=== PATIENT | male | born 1955 | race Caucasian/White ===

== ENCOUNTER 2018-01-15 12:28 | Emergency (ER) | payer MEDICAID, MEDICARE ==
[~2018-01-15] VITALS: Ht 182.9 cm; Wt 80.0 kg
[2018-01-15] MEDS ORDERED: MUPIROCIN OINT 2%, 22GM TP ONE (13:05)
[2018-01-15] MEDS ORDERED: CEFTRIAXONE PMX 1GM/50ML 50 ML ONE (13:21)
[2018-01-15] MEDS ORDERED: SODIUM CHLORIDE FLUSH 10ML SYR IVF ONE (13:30)
[2018-01-15] MEDS ORDERED: CEFTRIAXONE 1,000 MG in SODIUM CHLORIDE 0.9% 50 ML IVPB ONE (13:30)
[2018-01-15 13:32] LABS: BASOPHILS # (AUTO) 0.07 x10^3/uL (0-0.1); BASOPHILS % (AUTO) 1 % (0-1); EOSINOPHILS # (AUTO) 0.19 x10^3/uL (0-0.4); EOSINOPHILS % (AUTO) 2 % (1-7); LYMPHOCYTES # (AUTO) 1.36 x10^3/uL (1-3.4); LYMPHOCYTES % (AUTO) 14 % (22-44); MD NO; MEAN CORPUSCULAR HEMOGLOBIN 29.8 pg (27.5-34.5); MEAN CORPUSCULAR HGB CONC 34.2 g/dL (33.2-36.2); MEAN PLATELET VOLUME 7.5 fL (7.4-10.4); MONOCYTES # (AUTO) 0.48 x10^3/uL (0.2-0.8); MONOCYTES % (AUTO) 5 % (2-9); NEUTROPHILS % (AUTO) 79 % (42-75); PLATELET COUNT 342 x10^3/uL (130-400); RED BLOOD COUNT 4.27 x10^6/uL (4.38-5.82); RED CELL DISTRIBUTION WIDTH 13.5 % (9.4-14.8)
[2018-01-15 13:41] LABS: ALANINE AMINOTRANSFERASE 22 U/L (12-78); ALBUMIN 3.2 g/dL (3.4-5.0); ANION GAP 10 mmol/L (5-15); CALCIUM 9.5 mg/dL (8.5-10.1); CHLORIDE 102 mmol/L (98-107); CREATININE 1.23 mg/dL (0.7-1.3)
[2018-01-15 13:43] LABS: ALKALINE PHOSPHATASE 108 U/L (45-117); BILIRUBIN,TOTAL 0.5 mg/dL (0.2-1.0); TOTAL PROTEIN 7.4 g/dL (6.4-8.2)
[2018-01-15] MEDS ORDERED: POTASSIUM CHLORIDE 20 MEQ TAB.ER.PRT PO ONE (14:00)
[2018-01-15] MEDS ORDERED: POTASSIUM CHLORIDE 20 MEQ TAB.ER.PRT ONE (14:00)
[2018-01-15 14:48] VITALS: BP 110/71
[2018-01-15] MEDS ORDERED: OXYC20TA42 PO (20:25)
[2018-01-15] MEDS ORDERED: antibiotic PO (20:25)
[2018-01-15] MEDS ORDERED: [UNRECOGNIZED DRUG - REMARK] PO (20:25)
[2018-01-15] MEDS ORDERED: SENN1TAB67 PO (20:25)
[2018-01-15] MEDS ORDERED: [UNRECOGNIZED DRUG - REMARK] PO (20:25)
[2018-01-15] MEDS ORDERED: [UNRECOGNIZED DRUG - REMARK] PO (20:25)
== END 2018-01-15 14:51 | disposition left against medical advice (07) ==
LOC: ED 13:14 → UNDOADMIN 13:53 → EDIP 13:53 → UNDODISIN 14:51 → ED 14:51 → UNDODISIN 14:57
DX: K94.02 Colostomy infection (principal); L53.8 Other specified erythematous conditions
CPT/HCPCS: 36415; 80053; 85025; 87040; 96365; 99284; J0696

== ENCOUNTER 2018-01-15 19:57 | Inpatient (IN) | payer MEDICARE ==
[~2018-01-15] VITALS: Ht 172.7 cm; Wt 91.1 kg
[2018-01-15] MEDS ORDERED: OXYC20TA42 PO (20:25)
[2018-01-15] MEDS ORDERED: SENN1TAB67 PO (20:25)
[2018-01-15] MEDS ORDERED: [UNRECOGNIZED DRUG - REMARK] PO (20:25)
[2018-01-15] MEDS ORDERED: antibiotic PO (20:25)
[2018-01-15] MEDS ORDERED: [UNRECOGNIZED DRUG - REMARK] PO (20:25)
[2018-01-15] MEDS ORDERED: [UNRECOGNIZED DRUG - REMARK] PO (20:25)
[2018-01-15] MEDS ORDERED: ACETAMINOPHEN 500 MG TABLET PO ONE (21:00)
[2018-01-15] MEDS ORDERED: ACETAMINOPHEN 500 MG TABLET ONE (21:49)
[2018-01-15] MEDS ORDERED: SODIUM CHLORIDE 0.9% 1,000ML IVBOLUS ONE (22:00)
[2018-01-15 22:17] LABS: CLOSTRIDIUM DIFFICILE ANTIGEN NEGATIVE; CLOSTRIDIUM DIFFICILE TOXIN NEGATIVE (Negative)
[2018-01-15] MEDS ORDERED: VANCOMYCIN PMX 1GM/200ML 200 ML IV ONE (22:30)
[2018-01-15] MEDS ORDERED: VANCOMYCIN PER PHARMACY MC PRN (22:30)
[2018-01-15] MEDS ORDERED: PHARMACOKINETIC CONSULTATION MC ONE (23:00)
[2018-01-15] MEDS ORDERED: PHARMACOKINETIC MONITORING MC PRN (23:00)
[2018-01-15 23:22] VITALS: BP 99/62
[2018-01-15] MEDS: PIPERACILLIN/TAZO/PMX 3.375GM 50 ML IV SCH (23:32)
[2018-01-16] MEDS: VANCOMYCIN 1,600 MG in SODIUM CHLORIDE 0.9% 250 ML IV SCH (00:23)
[2018-01-16] MEDS ORDERED: hydrALAzine 20 MG/ML, 1ML IVPush PRN (01:00)
[2018-01-16] MEDS ORDERED: DOCUSATE 100 MG CAPSULE PO PRN (01:00)
[2018-01-16] MEDS ORDERED: ONDANSETRON ODT 4 MG PO PRN (01:00)
[2018-01-16] MEDS ORDERED: ONDANSETRON 2MG/ML, 2ML IVPush PRN (01:00)
[2018-01-16] MEDS ORDERED: ACETAMINOPHEN 325 MG TABLET PO PRN (01:00)
[2018-01-16] MEDS ORDERED: POLYETHYLENE GLYCOL 17 GM PACKET PO PRN (01:00)
[2018-01-16] MEDS ORDERED: BISACODYL 10 MG SUPP PR PRN (01:00)
[2018-01-16] MEDS ORDERED: PROMETHAZINE 25 MG/ML, 1ML IM PRN (01:00)
[2018-01-16] MEDS ORDERED: morphine SULFATE 10 MG/ML, 1ML IVPush PRN (01:00)
[2018-01-16 02:46] LABS: HEMOGLOBIN A1C 5.4 % (4.2-6.3)
[2018-01-16 02:51] LABS: C-REACTIVE PROTEIN, QUANT 3.4 mg/dL (0.02-0.49); THYROID STIMULATING HORMONE 3.52 mIU/L (0.358-3.740)
[2018-01-16 03:35] VITALS: BP 110/69
[2018-01-16] MEDS: SODIUM CHLORIDE 0.9% 1,000 ML IV SCH ×2 (03:57→16:55)
[2018-01-16] MEDS: ENOXAPARIN 40 MG/0.4 ML SQ SCH (03:57)
[2018-01-16 04:28] LABS: MICROSCOPIC INDICATED
[2018-01-16 04:32] LABS: CULTURE INDICATED? NO
[2018-01-16] MEDS: PIPERACILLIN/TAZO/PMX 3.375GM 50 ML IV SCH ×3 (06:31→23:29)
[2018-01-16] MEDS: SUCRALFATE 1 GM/10 ML UDC PO SCH ×5 (06:31→21:07)
[2018-01-16 07:45] VITALS: BP 100/64
[2018-01-16] MEDS: MAGNESIUM CHLORIDE 64 MG TABLET.DR PO SCH ×2 (11:53→21:06)
[2018-01-16] MEDS ORDERED: MAGNESIUM SULFATE PMX 2GM/50ML 50 ML IV ONE (12:00)
[2018-01-16 12:55] VITALS: BP 100/66
[2018-01-16 21:13] VITALS: BP 104/69
[2018-01-16] MEDS: OXYcodone IR 5MG TABLET PO PRN (23:53)
[2018-01-17] MEDS: VANCOMYCIN 1,600 MG in SODIUM CHLORIDE 0.9% 250 ML IV SCH (01:39)
[2018-01-17] MEDS: ENOXAPARIN 40 MG/0.4 ML SQ SCH (01:39)
[2018-01-17 03:59] VITALS: BP 105/75
[2018-01-17] MEDS: PIPERACILLIN/TAZO/PMX 3.375GM 50 ML IV SCH ×4 (05:25→23:28)
[2018-01-17 05:31] LABS: BASOPHILS # (AUTO) 0.05 x10^3/uL (0-0.1); BASOPHILS % (AUTO) 1 % (0-1); EOSINOPHILS # (AUTO) 0.29 x10^3/uL (0-0.4); EOSINOPHILS % (AUTO) 3 % (1-7); LYMPHOCYTES # (AUTO) 1.71 x10^3/uL (1-3.4); LYMPHOCYTES % (AUTO) 19 % (22-44); MD NO; MEAN CORPUSCULAR HEMOGLOBIN 29.8 pg (27.5-34.5); MEAN CORPUSCULAR HGB CONC 33.9 g/dL (33.2-36.2); MONOCYTES # (AUTO) 0.45 x10^3/uL (0.2-0.8); MONOCYTES % (AUTO) 5 % (2-9); NEUTROPHILS # (AUTO) 6.41 x10^3/uL (1.8-6.8); NEUTROPHILS % (AUTO) 72 % (42-75); PLATELET COUNT 369 x10^3/uL (130-400); RED BLOOD COUNT 4.41 x10^6/uL (4.38-5.82); RED CELL DISTRIBUTION WIDTH 13.8 % (9.4-14.8)
[2018-01-17 05:43] LABS: CHLORIDE 99 mmol/L (98-107)
[2018-01-17 05:47] LABS: ALANINE AMINOTRANSFERASE 17 U/L (12-78); ALKALINE PHOSPHATASE 98 U/L (45-117); ANION GAP 8 mmol/L (5-15); BILIRUBIN,TOTAL 0.4 mg/dL (0.2-1.0); CHOL/HDL RATIO 2.9; CHOLESTEROL, TOTAL 100 mg/dL (140-239); CREATININE 1.18 mg/dL (0.7-1.3); HDL CHOL % 35 % (26-37); HDL CHOLESTEROL (DIRECT) 35 mg/dL (40-60); LDL CHOLESTEROL,CALCULATED 32 mg/dL (54-169); LDL/HDL RATIO 0.9 (0.5-3.0); TOTAL PROTEIN 7.3 g/dL (6.4-8.2); TRIGLYCERIDES 167 mg/dL (50-200); VLDL CHOLESTEROL 33 mg/dL (0-25)
[2018-01-17 08:05] VITALS: BP 103/69
[2018-01-17] MEDS: MAGNESIUM CHLORIDE 64 MG TABLET.DR PO SCH ×2 (09:39→20:28)
[2018-01-17] MEDS: SUCRALFATE 1 GM/10 ML UDC PO SCH ×4 (09:40→20:28)
[2018-01-17 13:41] VITALS: BP 96/65
[2018-01-17] MEDS: OMEPRAZOLE 20 MG CAPSULE.DR PO SCH (17:00)
[2018-01-17] MEDS ORDERED: GOLYTELY 4,000ML ORAL.SOL PO ONE (18:00)
[2018-01-17 19:15] VITALS: BP 111/67
[2018-01-17] MEDS ORDERED: QUETIAPINE 25MG TABLET ONE (20:24)
[2018-01-17] MEDS: QUETIAPINE 100MG TABLET PO SCH (20:28)
[2018-01-17] MEDS: OXYcodone IR 5MG TABLET PO PRN (20:34)
[2018-01-18] MEDS: ENOXAPARIN 40 MG/0.4 ML SQ SCH (01:03)
[2018-01-18] MEDS: VANCOMYCIN 1,600 MG in SODIUM CHLORIDE 0.9% 250 ML IV SCH (01:03)
[2018-01-18 01:17] VITALS: BP 119/72
[2018-01-18] MEDS: PIPERACILLIN/TAZO/PMX 3.375GM 50 ML IV SCH ×4 (05:33→23:09)
[2018-01-18 07:20] VITALS: BP 107/56
[2018-01-18] MEDS: SUCRALFATE 1 GM/10 ML UDC PO SCH ×4 (07:22→20:16)
[2018-01-18] MEDS: OMEPRAZOLE 20 MG CAPSULE.DR PO SCH ×2 (07:27→16:28)
[2018-01-18] MEDS: MAGNESIUM CHLORIDE 64 MG TABLET.DR PO SCH (07:27)
[2018-01-18] MEDS: MULTIVITAMIN 1 TABLET PO SCH (07:27)
[2018-01-18] MEDS: OXYcodone IR 5MG TABLET PO PRN ×2 (07:29→16:40)
[2018-01-18 13:25] VITALS: BP 110/68
[2018-01-18] MEDS: QUETIAPINE 100MG TABLET PO SCH (20:17)
[2018-01-18 20:28] VITALS: BP 109/70
[2018-01-19] MEDS: VANCOMYCIN 1,600 MG in SODIUM CHLORIDE 0.9% 250 ML IV SCH ×2 (00:42→04:30)
[2018-01-19] MEDS: ENOXAPARIN 40 MG/0.4 ML SQ SCH (00:42)
[2018-01-19 02:28] VITALS: BP 106/67
[2018-01-19 05:08] LABS: CREATININE 0.95 mg/dL (0.7-1.3)
[2018-01-19] MEDS: PIPERACILLIN/TAZO/PMX 3.375GM 50 ML IV SCH (06:35)
[2018-01-19 07:00] VITALS: BP 101/61
[2018-01-19] MEDS: SUCRALFATE 1 GM/10 ML UDC PO SCH ×4 (07:09→21:40)
[2018-01-19] MEDS: MULTIVITAMIN 1 TABLET PO SCH (08:00)
[2018-01-19] MEDS: OXYcodone IR 5MG TABLET PO PRN ×2 (08:00→17:06)
[2018-01-19] MEDS: OMEPRAZOLE 20 MG CAPSULE.DR PO SCH ×2 (08:00→17:05)
[2018-01-19] MEDS: CEFTRIAXONE 1,000 MG in SODIUM CHLORIDE 0.9% 50 ML IV SCH (11:51)
[2018-01-19 13:20] VITALS: BP 110/71
[2018-01-19 20:12] VITALS: BP 118/68
[2018-01-19] MEDS ORDERED: QUETIAPINE 100MG TABLET PO SCH (21:00)
[2018-01-20] MEDS: ENOXAPARIN 40 MG/0.4 ML SQ SCH (01:08)
[2018-01-20 02:15] VITALS: BP 108/63
[2018-01-20] MEDS: SUCRALFATE 1 GM/10 ML UDC PO SCH ×4 (07:51→21:18)
[2018-01-20] MEDS: MULTIVITAMIN 1 TABLET PO SCH (07:51)
[2018-01-20] MEDS: OMEPRAZOLE 20 MG CAPSULE.DR PO SCH ×2 (07:51→16:44)
[2018-01-20 08:06] VITALS: BP 106/68
[2018-01-20] MEDS: CEFTRIAXONE 1,000 MG in SODIUM CHLORIDE 0.9% 50 ML IV SCH (11:32)
[2018-01-20 13:47] VITALS: BP 115/71
[2018-01-20] MEDS: OXYcodone IR 5MG TABLET PO PRN (14:24)
[2018-01-20 19:28] VITALS: BP 113/63
[2018-01-20] MEDS ORDERED: QUETIAPINE 200 MG TABLET PO SCH (21:00)
[2018-01-21] MEDS: ENOXAPARIN 40 MG/0.4 ML SQ SCH (00:54)
[2018-01-21 03:20] VITALS: BP 101/67
[2018-01-21 06:35] VITALS: BP 100/63
[2018-01-21] MEDS: SUCRALFATE 1 GM/10 ML UDC PO SCH ×2 (08:21→11:39)
[2018-01-21] MEDS: MULTIVITAMIN 1 TABLET PO SCH (08:21)
[2018-01-21] MEDS: OMEPRAZOLE 20 MG CAPSULE.DR PO SCH (08:21)
[2018-01-21] MEDS: CEFTRIAXONE 1,000 MG in SODIUM CHLORIDE 0.9% 50 ML IV SCH (11:39)
[2018-01-21] MEDS ORDERED: MULT1TAB60 PO (13:23)
[2018-01-21] MEDS ORDERED: CEFD300C37 PO (13:23)
[2018-01-21] MEDS ORDERED: SUCR1ORA5 PO (13:23)
[2018-01-21] MEDS ORDERED: QUET100T PO (13:23)
[2018-01-21] MEDS ORDERED: OMEP-110 PO (13:23)
[2018-01-21 13:52] VITALS: BP 116/74
[2018-01-21 14:38] VITALS: BP 100/66
[2018-01-21] MEDS ORDERED: QUETIAPINE 100MG TABLET PO SCH (21:00)
== END 2018-01-21 15:30 | disposition home health service (06) | DRG 863 ==
LOC: ED 21:16 → 4NOR 21:46
PROVIDERS: ADMIT Internal Medicine; ATTEND Internal Medicine
DX: T81.4XXA Infection following a procedure, initial encounter (principal); T81.31XA Disruption of external operation (surgical) wound, not elsewhere classified, initial encounter; L03.311 Cellulitis of abdominal wall; E87.2 Acidosis; E44.0 Moderate protein-calorie malnutrition; E87.1 Hypo-osmolality and hyponatremia; I50.22 Chronic systolic (congestive) heart failure; K22.10 Ulcer of esophagus without bleeding; K94.02 Colostomy infection; R45.4 Irritability and anger; F31.9 Bipolar disorder, unspecified; Y83.3 Surgical operation with formation of external stoma as the cause of abnormal reaction of the patient, or of later complication, without mention of misadventure at the time of the procedure; E87.6 Hypokalemia; K29.70 Gastritis, unspecified, without bleeding; Y83.8 Other surgical procedures as the cause of abnormal reaction of the patient, or of later complication, without mention of misadventure at the time of the procedure; R45.1 Restlessness and agitation; B96.29 Other Escherichia coli [E. coli] as the cause of diseases classified elsewhere; B95.4 Other streptococcus as the cause of diseases classified elsewhere; B96.89 Other specified bacterial agents as the cause of diseases classified elsewhere; D64.9 Anemia, unspecified; Z80.1 Family history of malignant neoplasm of trachea, bronchus and lung; Z83.3 Family history of diabetes mellitus; Z79.899 Other long term (current) drug therapy; Z87.19 Personal history of other diseases of the digestive system; Z68.30 Body mass index [BMI] 30.0-30.9, adult; Y92.89 Other specified places as the place of occurrence of the external cause
CPT/HCPCS: 36415; 80053; 80061; 80202; 81001; 82565; 83036; 83735; 84439; 84443; 84520; 85025; 85651; 86140; 87040; 87070; 87077; 87186; 87205; 87324; 99285; J0696; J1650; J2543; J3370; J3475; J7030; J7050

== ENCOUNTER → 2018-01-27 | Outpatient (CLI) | payer MEDICARE ==
[~2018-01-27] MED LIST: CEFD300C37 PO; MULT1TAB60 PO; OMEP-110 PO; OXYC20TA42 PO; QUET100T PO; SENN1TAB67 PO; SUCR1ORA5 PO; [UNRECOGNIZED DRUG - REMARK] PO; [UNRECOGNIZED DRUG - REMARK] PO; [UNRECOGNIZED DRUG - REMARK] PO; antibiotic PO
== END | disposition home or self-care (01) ==
LOC: WOUND 07:51
PROVIDERS: ATTEND Nurse Practitioner Family
DX: T81.30XA Disruption of wound, unspecified, initial encounter (principal); I50.22 Chronic systolic (congestive) heart failure; F31.10 Bipolar disorder, current episode manic without psychotic features, unspecified; Y83.8 Other surgical procedures as the cause of abnormal reaction of the patient, or of later complication, without mention of misadventure at the time of the procedure; Y92.89 Other specified places as the place of occurrence of the external cause
CPT/HCPCS: G0463; WOU0463